=== PATIENT | female | born 1975 | race Caucasian/White ===

== ENCOUNTER 2020-06-03 14:48 | Outpatient (CLI) | payer BC, SELFPAY ==
--- NOTE | 2020-06-03 14:52 | MM_ITS ---
WS: [id number] SCREENING DIGITAL MAMMOGRAM WITH CAD HISTORY: SCREENING COMPARISON: 01/23/2019 and 08/24/2010 Bilateral CC and MLO views submitted. Computer aided detection analyzed. Breast composition: There are scattered areas of fibroglandular density. No suspicious masses, microc alcifications or architectural distortion. MM/[place] [id number] IMPRESSION: BI-RADS: 1-Negative FOLLOW UP: 1 Year Follow-up
== END 2020-06-03 14:49 | disposition home or self-care (01) ==
LOC: RADSHAW 14:50
PROVIDERS: PCP Family Medicine; Visit Provider Family Medicine
DX: Z12.31 Encounter for screening mammogram for malignant neoplasm of breast (principal)
CPT/HCPCS: 77067

== ENCOUNTER → 2021-05-04 10:30 | Outpatient (BNVA) | payer BC, SELFPAY | PROVIDERS: PCP Family Medicine; Visit Provider Nurse Practitioner | DX: Z20.828 Contact with and (suspected) exposure to other viral communicable diseases (principal) | CPT/HCPCS: 87426 ==

== ENCOUNTER 2022-04-19 09:22 | Outpatient (CLI) | payer OTHER, SELFPAY ==
--- NOTE | 2022-04-19 09:30 | MM_ITS ---
WS: [id number] Bilateral screening 3D tomosynthesis digital mammogram, 04/19/2022 Clinical Data: SCREENING Comparison: 06/03/2020, 01/23/2019, 08/24/2010. Findings: The breast parenchymal pattern shows fibroglandular tissue. No spiculated masses or clustered calcifi cations are seen. There are no secondary signs of carcinoma. There are lymph nodes in both axilla. MM/[place] [id number] Impression: 1. Negative bilateral mammogram unchanged. 2. Recommend annual screening mammograms. BIRADS: 1-Negative FOLLOW UP: 1 Year Follow-up The CAD bad cloth checker was used.
== END 2022-04-19 09:23 | disposition home or self-care (01) ==
PROVIDERS: PCP Family Medicine; Visit Provider Family Medicine
DX: Z12.31 Encounter for screening mammogram for malignant neoplasm of breast (principal)
CPT/HCPCS: 77063; 77067

== ENCOUNTER → 2022-06-27 13:34 | Outpatient (BNVA) | payer OTHER, BC, SELFPAY | PROVIDERS: PCP Family Medicine; Visit Provider Nurse Practitioner | DX: S99.921A Unspecified injury of right foot, initial encounter (principal); W19.XXXA Unspecified fall, initial encounter | CPT/HCPCS: 73610; 73630 ==

== ENCOUNTER 2022-08-05 06:59 | Outpatient (CLI) | payer OTHER, BC, SELFPAY ==
--- NOTE | 2022-08-05 07:15 | MR_ITS ---
WS: [id number] EXAMINATION: MR ankle RT wo con* [id number] ORDER DATE: 08/05/2022 7:23 AM COMPARISON: None. HISTORY: Pain right ankle CONTRAST: None. TECHNIQUE: Axial proton density fat sat, axial T1, sagittal proton density, sagittal STIR, coronal T2 fat sat, and coronal T1 sequences performed. After contrast, axial T1 fat sat, coronal T1 fat sat, and sagittal T1 fat sat were performed. FINDINGS: Normal ankle mortise. Normal medial and lateral malleolus. Plantar and Achilles calcaneal spurring. D istal Achilles is normal in appearance. Small amount of fluid and edema in the posterior talar recess . Diffuse soft tissue edema about the ankle and dorsal midfoot. Subarticular edema involving the talo calcaneal articulation. Tiny hairline fracture line visualized on T1 imaging involving the medial tib ial plafond suspicious for subacute healing/healed fracture. No significant edema in this location. Small amount of edema involving the posterior medial talus likely due to contusion. Fluid and edema a long the ATF. ATF appears somewhat diminutive with some laxity suspicious for partial tear. Ganglion cyst involving the PTF suspicous for partial tear. Normal navicular. Normal cuneiforms. Normal peroneal tendon sheaths. MR/MR ankle RT wo con* [id number] IMPRESSION: 1. Tiny hairline fracture line involving the medial tibial plafond articular s urface suspicious for tiny healing/healed nondisplaced fracture. Minimal edema in this location. 2. Small ankle effusion. ATF appears somewhat diminutive with some laxity susp icious for partial tear 3. Small lobulated ganglion cysts involving the PTF fibers suspicious for part ial tear. 4. Diffuse soft tissue edema involving the ankle and dorsal forefoot. 5. Subarticular edema involving the talocalcaneal articulation likely posttrau matic or degenerative. 6. Small amount of edema involving the posterior medial talus likely due to co ntusion.
== END 2022-08-05 07:00 | disposition home or self-care (01) ==
PROVIDERS: PCP Family Medicine; Visit Provider Podiatrist Foot & Ankle Surgery
DX: S82.201A Unspecified fracture of shaft of right tibia, initial encounter for closed fracture (principal); M25.471 Effusion, right ankle; M67.471 Ganglion, right ankle and foot; X58.XXXA Exposure to other specified factors, initial encounter
CPT/HCPCS: 73721

== ENCOUNTER 2022-08-24 11:21 | Outpatient (CLI) | payer OTHER, SELFPAY | END 2022-08-24 11:22 | disposition home or self-care (01) | LOC: SPT 11:23 | PROVIDERS: PCP Family Medicine; Visit Provider Podiatrist Foot & Ankle Surgery | DX: Z46.89 Encounter for fitting and adjustment of other specified devices (principal); M84.37 Stress fracture, ankle, foot and toes; Z98.890 Other specified postprocedural states | CPT/HCPCS: 97760; L1902 ==

== ENCOUNTER 2023-05-27 11:50 | Outpatient (CLI) | payer OTHER, SELFPAY ==
--- NOTE | 2023-05-27 11:57 | MM_ITS ---
WS: [id number] BILATERAL 3D TOMOSYNTHESIS DIGITAL SCREENING MAMMOGRAPHY WITH CAD CLINICAL INFORMATION: SCREENING HISTORY: Screening mammogram. No current complaints. COMPARISON: 2022 TECHNIQUE: Bilateral CC and MLO views. FINDINGS: The breasts are composed of heterogeneous fibroglandular density tissue, which can limit the detectio n of small underlying mass lesions. Small ovoid nodular density measuring 8 mm outer LEFT breast. Rec ommend further evaluation with LEFT diagnostic mammography with spot compression views and ultrasound if persistent. This is best seen on the cc view. RIGHT breast is unchanged and unremarkable. IMPRESSION: MM/[place] [id number] BI-RADS: 0-Incomplete: Need additional imaging evaluation FOLLOW UP: Need Additional Imaging Recommend LEFT breast diagnostic mammography with spot compression views and ul trasound if persistent.
== END 2023-05-27 11:51 | disposition home or self-care (01) ==
LOC: RAD 11:50
PROVIDERS: PCP Family Medicine; Visit Provider Family Medicine
DX: Z12.31 Encounter for screening mammogram for malignant neoplasm of breast (principal); R92.323 Mammographic fibroglandular density, bilateral breasts; N63.20 Unspecified lump in the left breast, unspecified quadrant
CPT/HCPCS: 77063; 77067

== ENCOUNTER 2023-06-16 10:07 | Outpatient (CLI) | payer OTHER, SELFPAY ==
--- NOTE | 2023-06-16 10:13 | MM_ITS ---
WS: [id number] LEFT 3D TOMOSYNTHESIS DIGITAL MAMMOGRAPHY WITH CAD CLINICAL INFORMATION: ABNORMAL MAMMO HISTORY: Additional views COMPARISON: 05/27/2023 TECHNIQUE: 3 views of the left breast were obtained. FINDINGS: Scattered fibroglandular densities of the left breast. Previously described 8 mm ovoid density compre sses out today on the spot compression views. No residual abnormalities. Recommend return to annual s creening mammography. IMPRESSION: MM/[id number] BI-RADS: 2-Benign FOLLOW UP: 1 Year Follow-up Recommend return to annual screening mammography.
== END 2023-06-16 10:08 | disposition home or self-care (01) ==
LOC: RAD 10:07
PROVIDERS: PCP Family Medicine; Visit Provider Family Medicine
DX: R92.8 Other abnormal and inconclusive findings on diagnostic imaging of breast (principal); R92.322 Mammographic fibroglandular density, left breast
CPT/HCPCS: 77061; G0279

== ENCOUNTER 2023-07-21 08:28 | Outpatient (CLI) | payer OTHER, SELFPAY ==
[2023-07-21 10:16] LABS: Estmated Average Glucose 100; Hemoglobin A1C 5.1 % (4.0-6.0)
[2023-07-21 10:42] LABS: Basophils % 0.6 %; Eosinophils % 0.8 %; Hematocrit 35.6 % (36-47); Lymphocytes # 1.3 10^3/uL (0.8-4.8); Lymphocytes % 25.9 %; Mean Corpuscular HGB Conc 34.3 g/dL (30-55); Mean Corpuscular Volume 84.6 fl (85-98); Mean Platelet Volume 9.8 fL (7.4-10.4); Monocytes # 0.4 10^3/uL (0.2-0.9); Monocytes % 7.5 %; Neutrophils # 3.19 10^3/uL (1.8-7.7); Nucleated Red Blood Cells % 0 %; Platelet Count 216 10^3/cmm (157-399); Red Blood Count 4.21 10^6/uL (3.85-5.65); Red Cell Distribution Width 13.1 % (12.1-15.1); White Blood Count 4.91 10^3/uL (3.29-11.43)
[2023-07-21 11:18] LABS: 25 Hydroxy Vitamin D 33 ng/mL (30-100); Alanine Aminotransferase 16 U/L (0-33); Albumin Level 4.2 g/dL (3.5-5.2); Alkaline Phosphatase 93 U/L (35-105); Anion Gap 12.9 (5-19); Aspartate Amino Transferase 17 U/L (0-32); Blood Urea Nitrogen 11 mg/dL (6-20); Calcium 9.5 mg/dL (8.5-10.5); Carbon Dioxide 23 mmol/L (22-29); Chloride 104 mmol/L (98-107); Cholesterol 245 mg/dL (0-200); Globulin 2.9 g/dL (1.3-4.6); Glomerular Filtration Rate 107.6 mL/min (90-130); Glucose 102 mg/dL (65-115); HDL Cholesterol 57 mg/dL (60-100); LDL Cholesterol Calculated 162 mg/dL (50-129); LDL HDL Ratio 2.84 RATIO (0.00-3.22); Osmolality Calculated 282 mOsm/kg (285-295); Potassium 3.9 mmol/L (3.5-5.1); Sodium 136 mmol/L (136-145); Thyroid Stimulating Hormone 1.52 uIU/mL (0.27-4.20); Total Bilirubin 0.3 mg/dL (0.15-1.2); Total Protein 7.1 g/dL (6.6-8.7); Triglycerides 128 mg/dL (0-150)
== END 2023-07-21 08:29 | disposition home or self-care (01) ==
PROVIDERS: PCP Family Medicine; Visit Provider Nurse Practitioner Family
DX: R53.83 Other fatigue (principal); M25.50 Pain in unspecified joint; G89.29 Other chronic pain; E04.1 Nontoxic single thyroid nodule; R23.2 Flushing; R60.0 Localized edema
CPT/HCPCS: 36415; 80053; 80061; 82306; 83036; 84443; 85025

== ENCOUNTER → 2023-10-16 12:00 | Outpatient (BNVA) | payer OTHER, SELFPAY | PROVIDERS: PCP Family Medicine; Visit Provider Nurse Practitioner | DX: S99.921A Unspecified injury of right foot, initial encounter (principal); X58.XXXA Exposure to other specified factors, initial encounter | CPT/HCPCS: 73630 ==

== ENCOUNTER 2024-06-29 12:45 | Outpatient (CLI) | payer BC, SELFPAY ==
--- NOTE | 2024-06-29 12:53 | MM_ITS ---
WS: [id number] BILATERAL 3D TOMOSYNTHESIS DIGITAL SCREENING MAMMOGRAPHY WITH CAD CLINICAL INFORMATION: SCREENING HISTORY: Screening mammogram. No current complaints. COMPARISON: 2023 TECHNIQUE: Bilateral CC and MLO views. FINDINGS: The breasts are composed of heterogeneous fibroglandular density tissue, which can limit the detection of small underlying mass lesions. No suspicious mass, asymmetry, calcifications, or architectural distortion. No evidence of malignancy. MM/MM scr tomosynthesis [id number] IMPRESSION: DENSITY: The breasts are heterogeneously dense, which may obscure small masses. BI-RADS: 1 - Negative FOLLOW UP: 1 Year Follow-up Recommend return to annual screening mammography.
== END 2024-06-29 12:46 | disposition home or self-care (01) ==
PROVIDERS: PCP Family Medicine; Visit Provider Family Medicine
DX: Z12.31 Encounter for screening mammogram for malignant neoplasm of breast (principal); R92.333 Mammographic heterogeneous density, bilateral breasts
CPT/HCPCS: 77063; 77067